=== PATIENT | female | born 1960 | race Two or more races ===

== ENCOUNTER 2020-01-02 08:00 | Day surgery (SDC) | payer OTHER ==
[~2020-01-02 08:00] MED LIST: ARIMIDEX PO; ATORVASTATIN CA10 MG PO; ZESTORETIC 20-1 EACH PO
== END 2020-01-02 16:40 | disposition home or self-care (01) ==
LOC: CIR.AMB 08:00
PROVIDERS: ATTEND Surgery
DX: C50.211 Malignant neoplasm of upper-inner quadrant of right female breast (principal); Z90.11 Acquired absence of right breast and nipple; Z20.828 Contact with and (suspected) exposure to other viral communicable diseases

== ENCOUNTER 2020-08-13 05:46 | Day surgery (SDC) | payer OTHER ==
[~2020-08-13 05:46] MED LIST changes: +LEVOTHYROXINE25 MCG PO; +TYLENOL ARTHRI650 MG PO
== END 2020-08-13 11:40 | disposition home or self-care (01) ==
LOC: CIR.AMB 05:46
PROVIDERS: ATTEND Plastic Surgery
DX: N65.1 Disproportion of reconstructed breast (principal); Z90.11 Acquired absence of right breast and nipple; L90.5 Scar conditions and fibrosis of skin; Z20.822 Contact with and (suspected) exposure to COVID-19; Z85.3 Personal history of malignant neoplasm of breast
CPT/HCPCS: 11970; 19316; 15771; 15772; 11406; C1789